=== PATIENT | male | born 1995 | race Caucasian/White ===

== ENCOUNTER 2016-08-28 00:50 | Emergency (ER) | payer SELFPAY ==
[~2016-08-28] VITALS: Ht 167.6 cm; Wt 72.7 kg
[2016-08-28 01:01] VITALS: Ht 167.6 cm; Wt 72.7 kg
--- NOTE | 2016-08-28 01:55 | ERD ---
ER Documentation Chief Complaint Date/Time DATE: 08/28/16 TIME: 01:54 Chief Complaint bilat arm self-inflicted lac,anxiety,denies SI/HI,denies ETOH HPI This is a 20-year-old male with bilateral self-inflicted cuts after drinking alcohol tonight. He denies suicidal homicidal ideation. Denies any other current complaints. ROS All systems reviewed and are negative except as per history of present illness. Allergies Allergies: Coded Allergies: No Known Allergy (Unverified , 08/28/16) Physical Exam Vitals Vital Signs Date Time Temp Pulse Resp B/P Pulse Ox O2 Delivery O2 Flow Rate FiO2 08/28/16 01:01 99.2 118 18 122/89 97 Physical Exam Const: [] Head: Atraumatic Eyes: Normal Conjunctiva ENT: Normal External Ears, Nose and Mouth. Neck: Full range of motion..~ No meningismus. Resp: Clear to auscultation bilaterally Cardio: Regular rate and rhythm, no murmurs Abd: Soft, non tender, non distended. Normal bowel sounds Skin: Multiple superficial abrasions to both forearms noted. No active bleeding. Back: No midline or flank tenderness Ext: No cyanosis, or edema Neur: Awake and alert Psych: Normal Mood and Affect Procedures/MDM Medical decision-making: This patient comes in with self-limited wounds. Denies suicidal homicidal ideation. Patient says he was just drinking. Is awake and alert and oriented. Patient eloped from the emergency department. Police were notified. Patient adamantly denies suicidal homicidal ideation Departure Diagnosis: Primary Impression: Laceration Condition: Stable OPAL MADRIGAL Aug 28, 2016 01:55
== END 2016-08-28 02:23 | disposition left against medical advice (07) ==
LOC: E/R 00:50
DX: S51.811A Laceration without foreign body of right forearm, initial encounter (principal); X78.9XXA Intentional self-harm by unspecified sharp object, initial encounter; Y92.9 Unspecified place or not applicable
CPT/HCPCS: 99283

== ENCOUNTER 2017-11-03 19:26 | Emergency (ER) | END 2017-11-03 23:09 | disposition home or self-care (01) ==

== ENCOUNTER 2017-12-25 08:30 | Emergency (ER) | END 2017-12-25 09:30 | disposition home or self-care (01) ==